=== PATIENT | male | born 1955 | race Hispanic/Latino ===

== ENCOUNTER 2018-11-12 08:08 | Day surgery (SDC) | payer OTHER ==
[2018-11-11 12:29] VITALS: BMI 33.7
--- NOTE | 2018-11-11 21:22 | HP ---
HISTORY OF PRESENT ILLNESS: This is a 63-year-old Latin-[place] male referred to me for evaluation of hematochezia. The patient would have hemorrhoids and does bleed off and on. The patient has family history of colon cancer. No abdominal pain. The patient underwent colonoscopy for colon cancer screen. ALLERGIES: NONE. SOCIAL HISTORY: The patient does not smoke or drink alcohol. MEDICAL ILLNESS: 1. Obesity. 2. Diabetes. 3. Hypertension. 4. Hyperlipidemia. 5. Chronic acid reflux. PHYSICAL EXAMINATION: GENERAL: He is obese. Appears comfortable. Pulse is 70, blood pressure 130/80. HEENT: Conjunctivae clear. CARDIOVASCULAR SYSTEM: First and second heart sounds heard. LUNGS: Clear to auscultation. ABDOMEN: Soft to palpate. No organomegaly. No tenderness. No masses. ADMITTING DIAGNOSIS: A 63-year-old Latin-[place] male comes for colonoscopy for colon cancer screening. Job ID: [id number]
[2018-11-12] MEDS ORDERED: PROPOFOL 200 MG/20 ML VIAL ONE (13:50)
--- NOTE | 2018-11-12 18:15 | OP ---
DATE OF PROCEDURE: 11/12/2018 PROCEDURE PERFORMED: Colonoscopy. PREOPERATIVE DIAGNOSIS: A 63-year-old male, undergoing colonoscopy for colon cancer screening. POSTOPERATIVE DIAGNOSIS: Normal colonoscopy except for hemorrhoids. DESCRIPTION OF PROCEDURE: The patient was placed on his left lateral position and was given sedation by Anesthesia Department. A rectal exam was done before the scope was advanced into the rectum. No lesions felt on rectal exam. A [employer] video colonoscope was introduced into the rectum and advanced all the way into the cecum. In the appendicular opening, ileocecal valve, cecum, no pathology seen. The mucosa appears normal throughout the colon with normal vascular pattern. Withdrawal of scope from cecum to ascending colon, hepatic flexure, no pathology seen. In the transverse colon, splenic flexure, descending colon, sigmoid colon, no lesion seen. Retroflexion of scope in the rectum showed hemorrhoids. DISCHARGE PLAN: This is a 63-year-old [place] male, came for a colonoscopy for colon cancer screening. Colonoscopy showed no pathology. He does have hemorrhoids. DISCHARGE RECOMMENDATIONS: 1. High-fiber diet. 2. Metamucil once a day. 3. He is advised to call me if he develops abdominal pain, hematochezia. Job ID: [id number]
== END 2018-11-12 11:50 | disposition home or self-care (01) ==
LOC: SDC 08:08
PROVIDERS: ATTEND Internal Medicine Gastroenterology
PROC: 0DJD8ZZ Inspection of Lower Intestinal Tract, Via Natural or Artificial Opening Endoscopic (ICD-10-PCS; principal; 2018-11-12)
DX: Z12.11 Encounter for screening for malignant neoplasm of colon (principal); K64.8 Other hemorrhoids; I10 Essential (primary) hypertension; E11.9 Type 2 diabetes mellitus without complications; E78.5 Hyperlipidemia, unspecified; K21.9 Gastro-esophageal reflux disease without esophagitis; E66.9 Obesity, unspecified; Z68.33 Body mass index [BMI] 33.0-33.9, adult; Z79.84 Long term (current) use of oral hypoglycemic drugs; Z79.899 Other long term (current) drug therapy
CPT/HCPCS: J2704